=== PATIENT | female | born 1990 | race Caucasian/White ===

== ENCOUNTER 2016-06-03 18:15 | Inpatient (IN) | payer MEDICAID ==
[~2016-06-03] VITALS: Ht 152.4 cm; Wt 55.4 kg
[~2016-06-03 18:15] MED LIST: DCS100C PO; FERR325C PO; HYDR-1231 PO; Ibuprofen PO; PREN1TAB71 PO; [UNRECOGNIZED DRUG - CODE] PO
[2016-06-03] MEDS ORDERED: D5 LR IV SOLUTION 1,000 ML IV ONE (19:08)
[2016-06-03] MEDS ORDERED: DINOPROSTONE 10 MG (CERVIDIL) INSERT ONE (19:09)
[2016-06-03] MEDS: D5 LR IV SOLUTION 1,000 ML IV SCH (19:25)
[2016-06-03 20:00] VITALS: BP 121/57
[2016-06-03] MEDS ORDERED: ZOLPIDEM 5 MG (AMBIEN) TAB PO PRN (20:00)
[2016-06-03] MEDS ORDERED: DINOPROSTONE 10 MG (CERVIDIL) INSERT PV ONE (20:00)
[2016-06-03 20:05] LABS: BASOPHILS % (AUTO) 0 % (0-10); EOSINOPHILS # (AUTO) 0.1 10^3/uL (0.0-0.3); EOSINOPHILS % (AUTO) 1 % (0-10); LYMPHOCYTES % (AUTO) 23 % (12-44); MEAN CORPUSCULAR HEMOGLOBIN 32 PG (25-34); MEAN CORPUSCULAR HGB CONC 34 G/DL (32-36); MEAN CORPUSCULAR VOLUME 93 FL (80-99); MEAN PLATELET VOLUME 11.6 FL (7.4-10.4); MONOCYTES # (AUTO) 1.2 X 10^3 (0.0-1.0); MONOCYTES % (AUTO) 9 % (0-12); NEUTROPHILS # (AUTO) 8.7 X 10^3 (1.8-7.8); NEUTROPHILS % (AUTO) 67 % (42-75); PLATELET COUNT 218 10^3/uL (130-400); RED BLOOD COUNT 3.72 10^6/uL (4.35-5.85); RED CELL DISTRIBUTION WIDTH 14.3 % (10.0-14.5)
[2016-06-03] MEDS ORDERED: CATHETER FLUSH 10 ML SYR IV SCH (22:00)
[2016-06-04] VITALS (23 sets, daily range): BP systolic 98–141; BP diastolic 52–97
[2016-06-04] MEDS: D5 LR IV SOLUTION 1,000 ML IV SCH (03:25)
[2016-06-04] MEDS ORDERED: FLU TRIvalent (5 YOA+) 2016-17 (AFLURIA) 0.5 ML IM ONE ×2 (07:00→17:18)
[2016-06-04] MEDS ORDERED: OXYTOCIN/NORMAL SALINE 500 ML IV ONE (07:25)
[2016-06-04] MEDS ORDERED: OXYTOCIN/NORMAL SALINE 500 ML IV SCH ×2 (07:32→10:36)
--- NOTE | 2016-06-04 07:32 | History & Physical-OB ---
OB - Chief Complaint & HPI Date Date of Admission: Date of Admission: Jun 03, 2016 at 18:15 Chief Complaint/History OB-Reason for Admission/Chief: Induction of Labor Hx : 2 Hx Para: 1 Expected Date of Delivery: Jun 10, 2016 Gestational Age in Weeks: 39 Gestational Age in Days: 1 Indication for induction: maternal distance Admission Nurse Assessment Rev: Yes History of Labs GBS negative Allergies and Home Medications Allergies Coded Allergies: No Known Drug Allergies (Unverified , 11/28/13) Home Medications Vit/Fe Fumarate/Fa 1 Each Tablet 1 EACH PO DAILY (Reported) OB - History Hx of Present Care: Yes Ultrasounds: Normal mid trimester US Obstetrical Complications: None Medical Complications: None Obstetrical History Hx Termination: No Hx Multiple Gestation: No Hx Stillbirth: No Hx Complication: No Hx Induced Hypertens: No Hx Maternal Gestational Diabet: No Delivery History Hx Dystocia: No Hx Large For Gestational Age I: No Hx Small for Gestational Age I: No Hx Section: No Hx Vaginal Delivery Post C-Sec: No Hx Blood Disorders: No Adverse Rxn to Tranfusion: No Patient Past Medical History No chronic medical problems Social History/Family History HIV/AIDS: No Recent Infectious Disease Expo: No Sexually Transmitted Disease: No Alcohol Use: Denies Use Recreational Drug Use: No Immunizations Hepatitis A: Yes Hepatitis B: Yes Tetanus Booster (TDap): Unknown OB - Admission Exam Physical Exam Vitals: Vital Signs 06/04/16 07:00 Temp 98.5 Pulse 72 Resp 18 B/P 106/55 O2 Delivery Room Air HEENT: Moist Membranes Heart: Rhythm Normal Lungs: Clear Abdomen: Gravid Extremities: Normal Cervical Dilatation: 2cm Effacement: 50% Station: -3 Membranes: Intact Heart Rate: 140's Accelerations: Accelerations Present Decelerations: No Decelerations Penitentiary Variability: Average (6-25) Contractions on Admission: >10 Minutes Apart Intensity: Mild Taylor Scoring Tool (Modified) Dilation (cm): 1-2cm (1) Effacement (%): 31-51% (1) Descent/Station: -3 (0) Cervix Consistency: Medium(1) Cervix Position: Middle/Mid-Position (1) Add 1 point for: Each previous vaginal delivery (1) Taylor Score: 5 Labs Laboratory Tests Test 06/03/16 19:25 Range/Units Basophils # (Auto) 0.0 0.0-0.1 10^3/uL Basophils (%) (Auto) 0 0-10 % Eosinophils # (Auto) 0.1 0.0-0.3 10^3/uL Eosinophils (%) (Auto) 1 0-10 % Hematocrit 35 35-52 % Hemoglobin 11.9 11.5-16.0 G/DL Lymphocytes # (Auto) 3.0 1.0-4.0 X 10^3 Lymphocytes (%) (Auto) 23 12-44 % Mean Corpuscular Hemoglobin 32 25-34 PG Mean Corpuscular Hemoglobin Concent 34 32-36 G/DL Mean Corpuscular Volume 93 80-99 FL Mean Platelet Volume 11.6 H 7.4-10.4 FL Monocytes # (Auto) 1.2 H 0.0-1.0 X 10^3 Monocytes (%) (Auto) 9 0-12 % Neutrophils # (Auto) 8.7 H 1.8-7.8 X 10^3 Neutrophils (%) (Auto) 67 42-75 % Platelet Count 218 130-400 10^3/uL Red Blood Count 3.72 L 4.35-5.85 10^6/uL Red Cell Distribution Width 14.3 10.0-14.5 % White Blood Count 13.0 H 4.3-11.0 10^3/uL OB - Assessment/Plan/Diagnosis Assessment Assessment: induction of labor Plan Plan: Induction Induction Method: other (cervidil then AROM in the am) Other Plan desires epidural MELISA MENDOZA MD Jun 04, 2016 07:32
[2016-06-04] MEDS ORDERED: SUFENTA 0.6MCG/ML BUPIVA 0.125 0 ML ONE (09:05)
[2016-06-04] MEDS ORDERED: MEPIVACAINE (CARBOCAINE) 2% 50 ML VIAL ONE (09:52)
--- NOTE | 2016-06-04 10:36 | OB Labor & Delivery Record ---
L&D History Date of Service Date of Service: Jun 04, 2016 History Expected Date of Delivery: Jun 10, 2016 Gestational Age in Weeks: 39 Hx : 2 Hx Para: 1 Complications Events: Routine care Operative Indications (Cesarea: N/A-Vaginal Delivery Intrapartal Events: None L&D Stage1 Stage One Onset of Labor - Date: Jun 04, 2016 Onset of Labor - Time: 07:25 Monitors and Tracing Monitor Mode: Internal Heart Rate: 135 Monitor Accelerations: Uniform Monitor Decelerations: None Station: -3 Application Development Specialist Variability: Average (6-10) Short Term Variability: Present Presentation: Vertex Vital Signs VS - Last 72 Hours, by Label 06/03/16 06/04/16 06/04/16 20:00 07:00 07:30 Temp 98.2 98.5 97.5 Pulse 83 72 71 Resp 18 18 18 B/P 121/57 106/55 110/64 O2 Delivery Room Air Room Air Room Air Signs of Distress by FHT Signs of Distress no Rupture of Membranes Spontaneous Ruture of Membrane: No Amniotic Membrane Rupture Time: 07 Amniotic Membrane Fluid Desc.: Clear L&D Stage2 Stage Two Stage II Date: Jun 04, 2016 Stage II Time: 10:04 Monitors and Tracing Monitor Mode: Internal Heart Rate: 135 Monitor Accelerations: Uniform Monitor Decelerations: None Application Development Specialist Variability: Average (6-10) Short Term Variability: Present Position: Left Occiput Anterior Presentation: Vertex Signs of Distress by FHT Signs of Distress no Cord Descript/Complications Cord Vessel Description: 3 Vessels Delivery Type Delivery Method: Spontaneous Vaginal Anterior Shoulder: Left Episiotomy/Perineal Laceration Laceraction(s)/Extensions: Yes Episiotomy Description: Midline Sutures Used: Vicryl Condition of Infant Delivery 1 minute Comment: 8 5 minute Comment: 9 Condition of Condition of : Living Exam: No Observed Abnormalities Resuscitation Resuscitation: N/A - Spontaneous Resp L&D Stage3 Stage Three Stage III Date: Jun 04, 2016 Stage III Time: 10:06 Pictocin Pitocin Administration mu/min: 2 Pitocin ml/hr: 2 Pitocin Administration Comment: pitocin started per protocol. Placenta Delivery Placenta Delivery: Spontaneous Delivery Summary Summary 250 Condition of Delivery Examined: Cervix Examined Post Hemorrhage: No MELISA MENDOZA MD Jun 04, 2016 10:36
[2016-06-04] MEDS ORDERED: BENZOCAINE/MENTHOL (DERMOPLAST) 56 ML CAN TP PRN (10:45)
[2016-06-04] MEDS ORDERED: WITCH HAZEL(TUCKS) 40 EA JAR TOP PRN (10:45)
[2016-06-04] MEDS ORDERED: HYDROcodone/APAP 5 MG/325 MG (LORTAB) TAB PO PRN (10:45)
[2016-06-04] MEDS ORDERED: TETANUS,DIPTH,PERTUSS P/F (BOOSTRIX) 0.5 ML VIAL IM ONE ×2 (10:45→17:20)
[2016-06-04] MEDS ORDERED: MEASLES,MUMPS,RUBELLA 1 EA INJ SQ ONE (10:45)
[2016-06-04] MEDS ORDERED: CATHETER FLUSH 10 ML SYR IV SCH (14:00)
[2016-06-04] MEDS: IBUPROFEN 600 MG (MOTRIN) TAB PO SCH ×2 (14:26→22:45)
[2016-06-04] MEDS ORDERED: MEPIVACAINE (CARBOCAINE) 2% 20 ML VIAL INJ ONE (14:30)
[2016-06-05 01:00] VITALS: BP 117/67
[2016-06-05 04:45] VITALS: BP 106/64
[2016-06-05] MEDS: IBUPROFEN 600 MG (MOTRIN) TAB PO SCH ×2 (04:48→12:00)
[2016-06-05 06:31] LABS: BASOPHILS % (AUTO) 0 % (0-10); EOSINOPHILS # (AUTO) 0.2 10^3/uL (0.0-0.3); EOSINOPHILS % (AUTO) 1 % (0-10); LYMPHOCYTES # (AUTO) 2.7 X 10^3 (1.0-4.0); LYMPHOCYTES % (AUTO) 21 % (12-44); MEAN CORPUSCULAR HEMOGLOBIN 32 PG (25-34); MEAN CORPUSCULAR HGB CONC 34 G/DL (32-36); MEAN CORPUSCULAR VOLUME 95 FL (80-99); MEAN PLATELET VOLUME 11.4 FL (7.4-10.4); MONOCYTES # (AUTO) 1.3 X 10^3 (0.0-1.0); MONOCYTES % (AUTO) 10 % (0-12); NEUTROPHILS # (AUTO) 8.8 X 10^3 (1.8-7.8); NEUTROPHILS % (AUTO) 68 % (42-75); PLATELET COUNT 202 10^3/uL (130-400); RED BLOOD COUNT 3.33 10^6/uL (4.35-5.85); RED CELL DISTRIBUTION WIDTH 14.7 % (10.0-14.5)
[2016-06-05] MEDS ORDERED: IBUP-1773 PO (07:42)
--- NOTE | 2016-06-05 07:42 | Discharge Summary ---
Diagnosis/Chief Complaint Date of Admission Jun 03, 2016 at 18:15 Date of Discharge June 05, 2016 Discharge Date: Jun 05, 2016 Admission Diagnosis Admission Diagnosis 1. Intrauterine at term 39 weeks Discharge Diagnosis 1. Intrauterine at term 39 weeks Reason Hospital Visit 25-year-old 2 now term 2 female who initially presents to labor and delivery during the evening of June 03, 2016 for induction of labor at 39 weeks. The induction was done due to living in [place] and her concerns were getting here in a timely fashion. Patient had dilation to 2 cm upon presentation. Her EDC was listed June 10, 2016. Her care was essentially unremarkable. Discharge Summary-OBS Procedures 1. Spontaneous vaginal delivery 2. Repair of midline episiotomy Discharge Physical Examination Allergies: Coded Allergies: No Known Drug Allergies (Unverified , 11/28/13) Vitals & I&Os Vital Signs Date Time Temp Pulse Resp B/P Pulse Ox O2 Delivery O2 Flow Rate FiO2 06/05/16 04:45 98.4 77 18 106/64 98 Room Air General Appearance: No Acute Distress HEENT: Mucous Memb Moist/[place] Respiratory: Clear to Auscultation Cardiovascular: Regular Rate Abdominal: Normal Bowel Sounds, Soft Skin: No Rashes Hospital Course Patient was admitted during the evening of June 03, 2016 for induction of labor. Patient underwent Cervidil cervical ripening and tolerated procedure well. She developed a contraction pattern during the business trainer of June 04, 2016. She underwent amniotomy at 07 20 with clear fluid noted. Patient required only a small dose of Pitocin to augment her contraction. Patient did not receive epidural due to time constraint of dilating too fast. Once the completion she was allowed to push and delivered at 1004 a term appropriate for gestational age male. Infant received Apgars of 8 at 1 minute and 9 at 5 minutes. Following delivery patient underwent routine care orders. She was noted to have no complications during the remainder of her hospital stay. She tolerated regular diet. She was ambulatory and without any complaints of shortness of breath or leg pain. Her hemoglobin on the morning of dismissal was noted to be 10.8. She had all questions answered was felt ready for dismissal during the afternoon of June 05, 2016. Pending Labs Laboratory Tests 06/05/16 06:04: Basophils # (Auto) 0.0, Basophils (%) (Auto) 0, Eosinophils # (Auto) 0.2, Eosinophils (%) (Auto) 1, Hematocrit 32, Hemoglobin 10.8, Lymphocytes # (Auto) 2.7, Lymphocytes (%) (Auto) 21, Mean Corpuscular Hemoglobin 32, Mean Corpuscular Hemoglobin Concent 34, Mean Corpuscular Volume 95, Mean Platelet Volume 11.4, Monocytes # (Auto) 1.3, Monocytes (%) (Auto) 10, Neutrophils # ( Auto) 8.8, Neutrophils (%) (Auto) 68, Platelet Count 202, Red Blood Count 3.33, Red Cell Distribution Width 14.7, White Blood Count 13.0 Discharge Instructions to patient/family Please see electonic discharge instructions given to patient. Discharge Medications Reviewed and agree with Discharge Medication list on patient's Discharge Instruction sheet Clinical Quality Measures DVT/VTE Risk/Contraindication: Risk Factor Score Per Nursin RFS Level Per Nursing on Admit: 4+=Very High MELISA MENDOZA MD Jun 05, 2016 07:42
--- NOTE | 2016-06-05 07:44 | Discharge Inst-Women's Service ---
Discharge Inst-Women's Serv Depart Medication/Instructions New, Converted or Re-Newed RX: Transmitted to Pharmacy Consults/Follow Up Additional Follow Up: Yes (with Dr Mendoza in 6 weeks.) Activity Driving Instructions: You May Drive Nothing Inside Vagina: No [place] (for 6 weeks) Diet Discharge Diet: Regular Diet Return to The Hospital For: As below Symptoms to Report to : Bleeding Excessive, Pain Increased, Fever Over 101 Degrees F, Vaginal Discharge Foul For Any Problems or Questions: Contact Your Physician MELISA MENDOZA MD Jun 05, 2016 07:44
[2016-06-05 09:00] VITALS: BP 107/68
== END 2016-06-05 14:00 | disposition home or self-care (01) | DRG 775 ==
LOC: LDRP 18:15
PROVIDERS: ADMIT Family Medicine; ATTEND Family Medicine
PROC: 10E0XZZ Delivery of Products of Conception, External Approach (ICD-10-PCS; principal; 2016-06-04)
PROC: 0W8NXZZ Division of Female Perineum, External Approach (ICD-10-PCS; 2016-06-04)
DX: O80 Encounter for full-term uncomplicated delivery (principal); Z3A.39 39 weeks gestation of pregnancy; Z37.0 Single live birth; Z23 Encounter for immunization
CPT/HCPCS: 36415; 85025; 86850; 86900; 86901; 90715

== ENCOUNTER → 2017-05-21 | Outpatient (CLI) | payer MEDICAID ==
[~2017-05-21] MED LIST changes: +IBUP-1773 PO
--- NOTE | 2017-05-21 08:40 | Diagnostic Imaging Report ---
INDICATION: Epigastric pain. The liver is unremarkable. No discrete liver mass is identified. The gallbladder is without stones or sludge. No wall thickening or pericholecystic fluid is seen. There is no biliary ductal dilatation. The pancreas is unremarkable. The right kidney is unremarkable. There is no ascites. IMPRESSION: Unremarkable gallbladder ultrasound. Dictated by: Dictated on workstation # [id number]
== END ==
LOC: RAD 07:18
PROVIDERS: ATTEND Family Medicine
DX: R10.13 Epigastric pain (principal)
CPT/HCPCS: 76705

== ENCOUNTER → 2019-04-10 | Outpatient (CLI) | payer MEDICAID ==
--- NOTE | 2019-04-10 08:48 | Diagnostic Imaging Report ---
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 PA and lateral views of the chest obtained with comparison made to study of 02/21/2015. FINDINGS: Heart size and pulmonary vascularity are within normal limits, and the lungs are clear, bilaterally. IMPRESSION: Unremarkable chest. Dictated by: Dictated on workstation # [id number]
== END ==
LOC: RAD FS 08:27
PROVIDERS: ATTEND Family Medicine
DX: R76.11 Nonspecific reaction to tuberculin skin test without active tuberculosis (principal)
CPT/HCPCS: 71046

== ENCOUNTER → 2021-06-24 | Outpatient (CLI) | payer MEDICAID ==
--- NOTE | 2021-06-24 13:45 | Diagnostic Imaging Report ---
PROCEDURE: MR imaging of the brain without contrast. TECHNIQUE: Multiplanar, multisequence MR imaging of the brain was performed without contrast. INDICATION: Headaches. COMPARISON: none FINDINGS: No acute ischemia, mass, or hemorrhage. Focal T2 hyperintense signal is seen in the subcortical white matter in the bilateral frontal lobes. The ventricles, cortical sulci, and basilar cisterns are symmetric and unremarkable. The sellar and suprasellar regions have a normal appearance. The brainstem and posterior fossa are unremarkable. Mild mucosal thickening is seen in the sphenoid sinuses. The mastoid air cells demonstrate normal signal characteristics. The globes and orbits are symmetric and unremarkable. The scalp and calvarium have a normal appearance. IMPRESSION: 1. No acute ischemia, mass, or hemorrhage. 2. Focal T2 hyperintense signal in the subcortical white matter within the bilateral frontal lobes. Findings are favored to represent sequelae of migraine. Demyelination is felt to be less likely. Chronic microvascular disease would also be unlikely given the patient's age. 3. Mild mucosal thickening in the sphenoid sinuses. Dictated by: Dictated on workstation # [id number]
== END ==
LOC: RAD 13:15
PROVIDERS: ATTEND Nurse Practitioner Family
DX: G43.909 Migraine, unspecified, not intractable, without status migrainosus (principal); S09.90XS Unspecified injury of head, sequela
CPT/HCPCS: 70551

== ENCOUNTER → 2021-10-30 | Outpatient (CLI) | payer MEDICAID ==
--- NOTE | 2021-10-30 11:43 | Diagnostic Imaging Report ---
INDICATION: Generalized abdominal pain. Time of Exam: 10:03 AM Single view of the abdomen demonstrates bowel gas pattern to be nonobstructed. No radiopaque urinary tract calculi are seen. There is no free air. IMPRESSION: No acute feature detected. Dictated by: Dictated on workstation # [id number]
== END ==
LOC: RAD FS 09:50
PROVIDERS: ATTEND Nurse Practitioner Family
DX: K44.9 Diaphragmatic hernia without obstruction or gangrene (principal); R15.2 Fecal urgency; Z87.19 Personal history of other diseases of the digestive system
CPT/HCPCS: 74018

== ENCOUNTER → 2021-11-21 | Outpatient (CLI) | payer MEDICAID ==
[~2021-11-21] MED LIST changes: +CATHETER FLUSH 10 ML SYR IVP PRN
--- NOTE | 2021-11-21 11:20 | Diagnostic Imaging Report ---
INDICATION: Right upper quadrant pain. TECHNIQUE: Patient received 5.3 mCi technetium-99m Choletec intravenously. Sequential imaging over the abdomen performed. After confirmation of activity within the gallbladder, bile ducts, and proximal bowel, gallbladder stimulation was performed with oral ingestion of Ensure Plus with additional one hour of imaging and quantification of gallbladder ejection. FINDINGS: There is prompt homogenous distribution of the radiopharmacy throughout the liver parenchyma. Activity began to accumulate within the gallbladder within 15 minutes' time. With gallbladder stimulation, there was vigorous gallbladder contraction. Ejection fraction estimated at 83%, well within normal limits. IMPRESSION: 1. This is a normal nuclear medicine hepatobiliary scanning and gallbladder ejection fraction study. 2. Fatty meal ingestion results in good gallbladder contractility and did not reproduce any complaint of pain. Dictated by: Dictated on workstation # [id number]
== END ==
LOC: CARD 08:00
PROVIDERS: ATTEND Surgery
DX: R10.11 Right upper quadrant pain (principal)
CPT/HCPCS: 78227; A9537

== ENCOUNTER → 2021-12-04 | Outpatient (CLI) | payer MEDICAID ==
[~2021-12-04] MED LIST changes: -CATHETER FLUSH 10 ML SYR IVP PRN
--- NOTE | 2021-12-04 17:54 | Diagnostic Imaging Report ---
PROCEDURE: CT sinuses without contrast TECHNIQUE: Multiple contiguous axial images were obtained through the sinuses without the use of intravenous contrast. Coronal and sagittal reformations were then performed. Auto Exposure Controls were utilized during the CT exam to meet ALARA standards for radiation dose reduction. INDICATION: Chronic sinusitis. COMPARISON: MRI brain of 06/24/2021. FINDINGS: NASAL CAVITY: There is mild rightward bowing of the anterior aspect of the osseous nasal septum without significant deviation. No polyp within the nasal cavity. Evelyn bullosa of the right superior turbinate does not result in obstruction of the superior meatus. PARANASAL SINUSES: The bilateral maxillary, ethmoid and frontal sinuses are clear. The right frontal sinus is underpneumatized. Trace mucosal thickening measures no more than 3 mm in the sphenoid sinuses. No air-fluid levels of the paranasal sinuses. SINUS DRAINAGE PATHWAYS: The bilateral infundibula of the ostiomeatal units are patent. Frontal recesses are patent. The sphenoethmoidal recesses are obstructed due to mucosal thickening. OTHER: No space-occupying mass or hydrocephalus within the visualized aspects of the brain. Orbits are normal in appearance. IMPRESSION: 1. Trace mucosal thickening in the bilateral sphenoid sinuses does result in obstruction of the bilateral sphenoethmoidal recesses. 2. Otherwise, paranasal sinuses and sinus drainage pathways are clear. Dictated by: Dictated on workstation # [id number]
== END ==
LOC: RAD FS 15:13
PROVIDERS: ATTEND Otolaryngology Otolaryngology/Facial Plastic Surgery
DX: J32.9 Chronic sinusitis, unspecified (principal)
CPT/HCPCS: 70486

== ENCOUNTER 2022-03-10 05:31 | Outpatient (CLI) | payer MEDICAID ==
[~2022-03-10] VITALS: Ht 152.4 cm; Wt 44.5 kg
[2022-03-10] MEDS ORDERED: FLUT9.9S NS (10:22)
[2022-03-10] MEDS ORDERED: NORG1TAB14 PO (10:22)
== END 2022-03-10 16:26 | disposition home or self-care (01) ==
LOC: PREOP 05:31
PROVIDERS: ATTEND Surgery
DX: Z01.818 Encounter for other preprocedural examination (principal)

== ENCOUNTER 2022-03-18 06:42 | Day surgery (SDC) | payer MEDICAID ==
[2022-03-18] VITALS (11 sets, daily range): BP systolic 99–114; BP diastolic 60–76
[~2022-03-18] VITALS: Ht 152.4 cm; Wt 44.5 kg
[~2022-03-18 06:42] MED LIST changes: +FLUT9.9S NS; +NORG1TAB14 PO
[2022-03-18] MEDS ORDERED: ceFAZolin INJECTION 2,000 MG in NS (IVPB) 50 ML IV ONE (06:45)
[2022-03-18] MEDS ORDERED: BUP/EPI 0.25% 1:200,000 (MARCAINE) 30 ML VIAL ONE (07:10)
[2022-03-18] MEDS: LACTATED RINGERS 1,000 ML IV PRN ×2 (07:12→08:57)
[2022-03-18] MEDS ORDERED: BUP/EPI 0.25% 1:200,000 (MARCAINE) 30 ML VIAL INJ ONE (07:15)
[2022-03-18] MEDS ORDERED: GLYCOPYRROLATE 0.2 MG/ML (ROBINUL) 2 ML VIAL ONE (07:31)
[2022-03-18] MEDS ORDERED: ONDANSETRON 4 MG/2 ML (SDV) Z0FRAN ONE (07:31)
[2022-03-18] MEDS ORDERED: proPOfol 200 MG/20 ML (DIPRIVAN) VIAL IV ONE (07:31)
[2022-03-18] MEDS ORDERED: fentaNYL INJ 100 MCG/2 ML AMP ONE (07:31)
[2022-03-18] MEDS ORDERED: MIDAZOLAM 2 MG/2 ML (VERSED) VIAL ONE (07:31)
[2022-03-18] MEDS ORDERED: ROCURONIUM 10 MG/ML 5 ML SYRINGE IV ONE (07:31)
[2022-03-18] MEDS ORDERED: LIDOCAINE PF 2% 5 ML (XYLOCAINE) VIAL ONE (07:31)
--- NOTE | 2022-03-18 08:17 | Progress Note-Pre Operative ---
Pre-Operative Progress Note Date of Available H&P: Mar 03, 2022 Date H&P Reviewed: Mar 18, 2022 Time H&P Reviewed: 08:09 History & Physical: H&P Reviewed, Patient Examed, No changes noted Pre-Operative Diagnosis: Biliary Dyskinesia, Chronic Gastritis STEPHANIE MARTIN DO Mar 18, 2022 08:17
[2022-03-18] MEDS ORDERED: IOHEXOL 300 MG/ML 30 ML (OMNIPAQUE 300) VIAL INJ ONE (09:07)
--- NOTE | 2022-03-18 09:35 | Progress Note-Post Operative ---
Post-Operative Progess Note Surgeon (s)/Glass Novelty Maker (s) Surgeon STEPHANIE MARTIN DO Glass Novelty Maker: ANGELIKA Schneider Pre-Operative Diagnosis Biliary Dyskinesia, Chronic Gastritis Post-Operative Diagnosis Biliary Dyskinesia Procedure & Operative Findings Date of Procedure 03/18/22 Procedure Performed/Findings PROCEDURE: Laparoscopic cholecystectomy with intraoperative cholangiogram. COMPLICATIONS: None. PROCEDURE: The patient was taken to the operating suite and was prepped and draped in sterile fashion. A surgical pause was performed. Just superior to the umbilicus, a 12 mm incision was made. Dissection was taken down to the fascia, which was then scored and grasped with a Hunter and the abdomen was then entered. An 0 Vicryl suture was placed in a [id number]-[id number] fashion and a Zhao trocar was placed and secured. Pneumoperitoneum was achieved. A 5mm trochar place in the subxyphoid and 2 in the right lower quadrant in the normal fashion; with local lidocaine, stab incision with #11 blade and the versa-step system. The gallbladder was then grasped and elevated. The cystic duct, and cystic artery were then dissected out. Clip was placed on the distal portion of the cystic duct which was then partially transected. An arrow catheter was inserted into the duct. The cholangiogram was then performed. No filling defects and contrast made its way into the duodenum. Catheter removed. Clips were placed on proximal portion of the cystic duct and then the duct was then transected. Clips were placed along the proximal and distal portion of the cystic artery which was then transected. Hook cautery was used to dissect the gallbladder from the gallbladder fossa achieving hemostasis. The gallbladder was placed in an Endobag and removed through the 12 mm trocar site. The abdomen was then reinspected. Copious amounts of irrigation were used to irrigate the abdomen and there were no signs of active bleeding. Hemostasis had been achieved. The 12 mm fascial defect was then closed with 0 Vicryl suture that had been placed in a [id number] fashion. The abdomen was then desufflated, the trocars were removed. The abdomen was then washed and dried. The skin was then closed using 4-0 Monocryl in a subcuticular fashion. The abdomen was washed and dried and Skin Affix was place over incisions. Patient tolerated the procedure well without any complications and was taken to the recovery room in stable condition. Anesthesia Type GET Estimated Blood Loss Estimated blood loss (mL): scant Specimens/Packing Specimens Removed GB and contents STEPHANIE MARTIN DO Mar 18, 2022 09:35
[2022-03-18] MEDS ORDERED: SEVOFLURANE (ULTANE) 15 ML INHAL SOLN ONE (09:38)
--- NOTE | 2022-03-18 09:38 | Progress Note-Post Operative ---
Post-Operative Progess Note Surgeon (s)/Winder Helper (s) Surgeon STEPHANIE MARTIN DO Winder Helper: none Pre-Operative Diagnosis Chronic Gastritis Post-Operative Diagnosis Gastritis Hiatal hernia Procedure & Operative Findings Date of Procedure 03/18/22 Procedure Performed/Findings EGD with bx PROCEDURE NOTE: After informed consent was obtained, the patient was brought to the endoscopy suite, placed in bed in left lateral decubitus position. She was administered IV sedation by the SILVERWARE BUFFER who then monitored vitals the entire time, heart rate, blood pressure and pulse ox and the scope was inserted down the mouth through the esophagus into the stomach. Pushed into the stomach and pushed past the antrum into the duodenum. Duodenum looked good. Pulled back and noted the antrum had mild gastritis, did a biopsy of the antrum. Then retroflexed the scope, saw a large hiatal hernia, took a picture of this. Then pulled the scope into the GE junction and then did a biopsy of the GE junction. Pushed the scope back into the stomach, suctioned all the air out of the stomach. At this point pulled the scope up the esophagus and out the mouth. The patient tolerated the procedure, and she recovered in endoscopy suite. Anesthesia Type GET Estimated Blood Loss Estimated blood loss (mL): scant Specimens/Packing Specimens Removed antrum GE jxn STEPHANIE MARTIN DO Mar 18, 2022 09:38
[2022-03-18] MEDS ORDERED: NEOSTIGMINE (BLOXIVERZ ) 1 MG/1ML 10 ML VIAL ONE (09:39)
--- NOTE | 2022-03-18 09:39 | Endoscopy Discharge Instruct ---
Endo Procedure/Findings Findings 1.: Gastritis 2.: Hiatal Hernia Discharge Instructions - Activity: You might feel a little sleepy until tomorrow. This is due to the medicine you received to relax you. Until tomorrow, you should: NOT drive a car, operate machinery or power tools. NOT drink any alcoholic beverages. NOT make any important decisions or sign importortant papers. Do not return to work until tomorrow, unless otherwise instructed. Resume previous activities tomorrow. Diet: Start by taking liquids. If you tolerate liquids, advance to solid food. 1.: EGD in 3 years Notify Physician - If you experience excessive bleeding, unusual abdominal pain, fever, or chest pain, contact your doctor immediately. STEPHANIE MARTIN DO Mar 18, 2022 09:39
[2022-03-18] MEDS ORDERED: ACHD5005 PO (09:40)
--- NOTE | 2022-03-18 09:40 | Discharge Inst-Surgical ---
Discharge Inst-Surgical Depart Medication/Instructions New, Converted or Re-Newed RX: Transmitted to Pharmacy Patient Instructions Follow up Appt: Make appointment for 1 week. [phone] Instructions: No lifting greater than 20 pounds. No strenuous activity. May shower in 24 hours, no tub bath or soaking. Use incentive spirometer at home as directed. No Smoking Skin/Wound Care: May remove bandages in am. You need to leave the Dermabond on incision it will fall off on it's own. Symptoms to Report: Appetite Changes, Extremity Discoloration, Numbness/Tingling, Swelling Increased, Bleeding Excessive, Eyesight Changes, Pain Increased, Urine Color Change, Constipation(Persistent), Fever over 101 degree F, Pain/Pressure in chest, Urinating Difficulty, Cough Up/Vomit Blood, Heart Beat Irreg/Pounding, Pain/Pressure in jaw, Cramps in feet or legs, Lightheadedness, Pain/Pressure in shoulder, Diarrhea(Persistent), Memory Changes Suddenly, Questions/Concerns, Weight gain consecutive days, Dizziness/Fainting, Nausea/Vomiting, Shortness of Breath, Weight gain over 2 pounds If questions or concerns contact your physician Or seek help at emergency department. Activity Activity as Tolerated: Yes Activity Instructions: Avoid Stress to Incision Driving Instructions: No Driving/Refer to Diet Discharge Diet: Avoid Fatty Foods, Low Fat/Low Cholesterol Diet After 24 Hours: Clear Liquid if Nauseous If Any Problems/Questions/Issu: Contact Your Physician, Go to Emergency Room Skin/Wound Care Infection Signs and Symptoms: Increased Redness, Foul Odor of Wound, Increased Drainage, Skin Itchy or Has a Rash, Increased Swelling, Temperature Above 101 F Wound Care Comment: heating pad to shoulder if needed for pain tonight Bathing Instructions: Shower Stitches/Rich/Dermabond Dis: Dermabond Ice Pack: Ice On and Off Site STEPHANIE MARTIN DO Mar 18, 2022 09:40
[2022-03-18] MEDS ORDERED: ONDANSETRON 4 MG/2 ML (SDV) Z0FRAN IVP PRN (09:45)
[2022-03-18] MEDS ORDERED: morphine INJ 10 MG/ML 1ML (SYR OR VIAL) IVP ONE (09:45)
[2022-03-18] MEDS ORDERED: HYDROmorphone 2 MG/ML VIAL (DILAUDID) IV ONE (09:45)
[2022-03-18] MEDS ORDERED: morphine INJ 10 MG/ML 1ML (SYR OR VIAL) ONE (09:46)
--- NOTE | 2022-03-18 09:54 | Anesthesia-General Post-Op ---
General Patient Condition Mental Status/LOC: Same as Preop Cardiovascular: Satisfactory Nausea/Vomiting: Absent Respiratory: Satisfactory Pain: Controlled Complications: Absent Post Op Complications Complications None Follow Up Care/Instructions Patient Instructions None needed. Anesthesia/Patient Condition Patient Condition Patient is doing well in PACU. She does complain of some abdominal pain which is to be expected and is currently better after morphine. She has stable vital signs, no apparent adverse anesthesia problems. No complications reported per nursing. JACKIE CHILDRESS DO Mar 18, 2022 09:54
--- NOTE | 2022-03-18 18:51 | Diagnostic Imaging Report ---
INDICATION: Cholecystectomy Operative cholangiogram performed in a routine fashion with injection via the cystic duct stump in surgery. The distal common bile duct is visualized and appears patent and with contrast flow into the duodenum. There is extravasation of contrast at the injection site. 48 images were obtained, 9.3 seconds of fluoroscopy time was used. IMPRESSION: Intraoperative cholangiogram demonstrates no biliary obstruction. Some extravasation at the injection site was noted. Dictated by: Dictated on workstation # [id number]
== END 2022-03-18 12:20 | disposition home or self-care (01) ==
LOC: SDC 06:42
PROVIDERS: ATTEND Surgery
DX: K29.50 Unspecified chronic gastritis without bleeding (principal); K44.9 Diaphragmatic hernia without obstruction or gangrene; K82.8 Other specified diseases of gallbladder; K81.1 Chronic cholecystitis; Z28.310 Unvaccinated for COVID-19; K20.90 Esophagitis, unspecified without bleeding
CPT/HCPCS: 76000; 84703; 87081

== ENCOUNTER 2022-03-20 12:10 | Emergency (ER) | payer MEDICAID ==
[~2022-03-20] VITALS: Ht 152.4 cm; Wt 44.4 kg
[~2022-03-20 12:10] MED LIST changes: +ACHD5005 PO
--- NOTE | 2022-03-20 12:18 | ED GI ---
General Chief Complaint: Abdominal/GI Problems Stated Complaint: ABD PAIN History of Present Illness Date Seen by Provider: Mar 20, 2022 Time Seen by Provider: 12:18 Initial Comments 31-year-old female who is postop day 3 from a cholecystectomy at [facility], is brought in by EMS with complaints of epigastric pain and dysuria which has been worsening associated with nausea. Patient took 1 dose of hydrocodone that was given to her after surgery. Patient has not been eating much and is also not drinking much. Denies fever, cough, shortness of breath, diarrhea. Allergies and Home Medications Allergies Coded Allergies: No Known Drug Allergies (Unverified , 03/18/22) Patient Home Medication List Home Medication List Reviewed: Yes Fluticasone Propionate (Flonase Allergy Relief) 50 Mcg/Actuation [place].susp, 2 SPRAY NS DAILY, (Reported) Entered as Reported by: BOB LYONS on 03/10/22 1022 Hydrocodone Bit/Acetaminophen (HYDROcodone/APAP 5 MG/325 MG TAB) 1 Tab Tab, 1 TAB PO Q6H PRN for PAIN-MODERATE (5-7) Prescribed by: STEPHANIE MARTIN on 03/18/22 0941 Norgestimate-Ethinyl Estradiol (Sprintec 28 Day Tablet) 0.25 Mg-35 Mcg Tablet, 1 EACH PO UD, (Reported) Entered as Reported by: BOB LYONS on 03/10/22 1022 Review of Systems Review of Systems Constitutional: no symptoms reported EENTM: No Symptoms Reported Respiratory: No Symptoms Reported Cardiovascular: No Symptoms Reported Gastrointestinal: Abdominal Pain Genitourinary: Burning Musculoskeletal: no symptoms reported Skin: no symptoms reported Psychiatric/Neurological: No Symptoms Reported Endocrine: No Symptoms Reported Hematologic/Lymphatic: No Symptoms Reported Past Ukrglmw-[id number]-Wfhkno Hx Immunizations Up To Date Tetanus Booster (TDap): Unknown PED Vaccines UTD: Yes Seasonal Allergies Seasonal Allergies: Yes Past Medical History Surgeries: Yes (deviated septum repair, bladder sx as child to stretch) Respiratory: No Currently Using CPAP: No Currently Using BIPAP: No Cardiac: No Neurological: Yes Headaches /Migraines Reproductive Disorders: No Female Reproductive Disorders: Denies Sexually Transmitted Disease: No HIV/AIDS: No Genitourinary: No Gastrointestinal: Yes Hiatal Hernia Musculoskeletal: Yes Arthritis Endocrine: No HEENT: Yes (sinus sx) Loss of Vision: Denies Hearing Impairment: Denies Cancer: No Psychosocial: Yes Anxiety, Depression Integumentary: No Blood Disorders: No Adverse Reaction/Blood Tranf: No Family Medical History Not obtainable due to adoption 19 MOTHER Physical Exam Vital Signs Vital Signs - First Documented 03/20/22 12:10 Temp 36.3 Pulse 63 Resp 18 B/P (MAP) 113/43 (66) Pulse Ox 99 O2 Delivery Room Air Capillary Refill : Height/Weight/BMI Height: 5'0.00" Weight: 122lbs. 2.0oz. [id number]; 19.15 BMI Method: General Appearance: WD/WN, no apparent distress HEENT: PERRL/EOMI, normal ENT inspection Neck: non-tender, full range of motion Respiratory: chest non-tender, lungs clear, normal breath sounds, no respiratory distress, no accessory muscle use Cardiovascular: regular rate, rhythm Gastrointestinal: normal bowel sounds, soft, no organomegaly, no pulsatile mass, tenderness (epigastric area) Extremities: normal range of motion Back: normal inspection, no CVA tenderness Neurologic/Psychiatric: alert, normal mood/affect, oriented x 3 Skin: normal color Lymphatic: no adenopathy Focused Exam Lactate Level 03/20/22 13:27: Lactic Acid Level 1.18 Lactic Acid Level Laboratory Tests Test 03/20/22 13:27 Lactic Acid Level 1.18 MMOL/L (0.50-2.00) Progress/Results/Core Measures Results/Orders Lab Results Laboratory Tests Test 03/20/22 12:15 03/20/22 13:27 03/20/22 13:55 Range/Units White Blood Count 14.7 H 4.3-11.0 10^3/uL Red Blood Count 4.11 3.80-5.11 10^6/uL Hemoglobin 12.4 11.5-16.0 g/dL Hematocrit 36 35-52 % Mean Corpuscular Volume 88 80-99 fL Mean Corpuscular Hemoglobin 30 25-34 pg Mean Corpuscular Hemoglobin Concent 34 32-36 g/dL Red Cell Distribution Width 12.6 10.0-14.5 % Platelet Count 233 130-400 10^3/uL Mean Platelet Volume 11.4 9.0-12.2 fL Immature Granulocyte % (Auto) 0 % Neutrophils (%) (Auto) 73 42-75 % Lymphocytes (%) (Auto) 19 12-44 % Monocytes (%) (Auto) 7 0-12 % Eosinophils (%) (Auto) 0 0-10 % Basophils (%) (Auto) 0 0-10 % Neutrophils # (Auto) 10.7 H 1.8-7.8 10^3/uL Lymphocytes # (Auto) 2.8 1.0-4.0 10^3/uL Monocytes # (Auto) 1.1 H 0.0-1.0 10^3/uL Eosinophils # (Auto) 0.0 0.0-0.3 10^3/uL Basophils # (Auto) 0.0 0.0-0.1 10^3/uL Immature Granulocyte # (Auto) 0.0 0.0-0.1 10^3/uL Neutrophils % (Manual) 68 % Lymphocytes % (Manual) 21 % Monocytes % (Manual) 7 % Band Neutrophils 4 % Platelet Estimate NORMAL Blood Morphology Comment NORMAL Prothrombin Time 13.2 12.2-14.7 SEC INR Comment 1.0 0.8-1.4 Activated Partial Thromboplast Time < 20 L 24-35 SEC D-Dimer 2.24 H 0.00-0.49 UG/ML Sodium Level 142 135-145 MMOL/L Potassium Level 4.0 3.6-5.0 MMOL/L Chloride Level 102 98-107 MMOL/L Carbon Dioxide Level 23 21-32 MMOL/L Anion Gap 17 H 5-14 MMOL/L Blood Urea Nitrogen 10 7-18 MG/DL Creatinine 0.58 L 0.60-1.30 MG/DL Estimat Glomerular Filtration Rate 122 BUN/Creatinine Ratio 17 Glucose Level 112 H 70-105 MG/DL Calcium Level 9.2 8.5-10.1 MG/DL Corrected Calcium 9.0 8.5-10.1 MG/DL Magnesium Level 1.8 1.6-2.4 MG/DL Total Bilirubin 2.2 H 0.1-1.0 MG/DL Aspartate Amino Transf (AST/SGOT) 28 5-34 U/L Alanine Aminotransferase (ALT/SGPT) 28 0-55 U/L Alkaline Phosphatase 50 40-136 U/L Total Protein 7.1 6.4-8.2 GM/DL Albumin 4.3 3.2-4.5 GM/DL Lactic Acid Level 1.18 0.50-2.00 MMOL/L Urine Color YELLOW Urine Clarity CLOUDY Urine pH 6.0 5-9 Urine Specific Severance 1.010 L 1.016-1.022 Urine Protein NEGATIVE NEGATIVE Urine Glucose (UA) NEGATIVE NEGATIVE Urine Ketones 1+ H NEGATIVE Urine Nitrite NEGATIVE NEGATIVE Urine Bilirubin NEGATIVE NEGATIVE Urine Urobilinogen 0.2 < = 1.0 MG/DL Urine Leukocyte Esterase 1+ H NEGATIVE Urine RBC (Auto) TRACE-I H NEGATIVE Urine RBC RARE /HPF Urine WBC 2-5 /HPF Urine Squamous Epithelial Cells 5-10 /HPF Urine Crystals NONE /LPF Urine Bacteria FEW H /HPF Urine Casts NONE /LPF Urine Mucus NEGATIVE /LPF Urine Culture Indicated YES Urine Opiates Screen POSITIVE H NEGATIVE Urine Oxycodone Screen NEGATIVE NEGATIVE Urine Methadone Screen NEGATIVE NEGATIVE Urine Propoxyphene Screen NEGATIVE NEGATIVE Urine Barbiturates Screen NEGATIVE NEGATIVE Ur Tricyclic Antidepressants Screen NEGATIVE NEGATIVE Urine Phencyclidine Screen NEGATIVE NEGATIVE Urine Amphetamines Screen NEGATIVE NEGATIVE Urine Methamphetamines Screen NEGATIVE NEGATIVE Urine Benzodiazepines Screen NEGATIVE NEGATIVE Urine Cocaine Screen NEGATIVE NEGATIVE Urine Cannabinoids Screen NEGATIVE NEGATIVE My Orders Orders - NISHI SU MD Cbc With Automated Diff (03/20/22 12:26) Comprehensive Metabolic Panel (03/20/22 12:26) Fibrin Degradation Products (03/20/22 12:26) Drug Screen Stat (Urine) (03/20/22 12:26) Lactic Acid Analyzer (03/20/22 12:26) Magnesium (03/20/22 12:26) Protime With Inr (03/20/22 12:26) Partial Thromboplastin Time (03/20/22 12:26) Ua Culture If Indicated (03/20/22 12:26) Metoclopramide Injection (Reglan Injecti (03/20/22 12:28) Famotidine Tablet (Pepcid Tablet) (03/20/22 12:28) Ed Iv/Invasive Line Start (03/20/22 12:28) Ed Iv/Invasive Line Start (03/20/22 12:28) Ns Iv 1000 Ml (Sodium Chloride 0.9%) (03/20/22 12:30) Manual Differential (03/20/22 12:15) Urine Culture (03/20/22 13:55) Ceftriaxone 1 Gm Pre-Mix (Rocephin 1 Gm (03/20/22 14:17) Blood Culture (03/20/22 14:17) Lactic Acid Analyzer (03/20/22 14:17) Ct Sarah Chest/Noang Abd-Pelv W (03/20/22 14:16) Fentanyl Inj (Sublimaze Injection) (03/20/22 14:30) Iohexol Injection (Omnipaque 350 Mg/Ml 1 (03/20/22 14:30) Di Iv Start (Assessment) .IV start (03/20/22 14:24) Received Contrast (Hold Metformin- Contr (03/20/22 14:30) Ns (Ivpb) (Sodium Chloride 0.9% Ivpb Bag (03/20/22 14:30) Medications Given in ED Current Medications Medications Dose Ordered Sig/Ruy Route Start Time Stop Time Status Last Admin Dose Admin Fentanyl Citrate 50 mcg ONCE ONCE IVP 03/20/22 14:30 03/20/22 14:31 DC 03/20/22 15:50 50 MCG Iohexol 100 ml ONCE ONCE IV 03/20/22 14:30 03/20/22 14:31 DC 03/20/22 15:05 75 ML Sodium Chloride 100 ml ONCE ONCE IV 03/20/22 14:30 03/20/22 14:31 DC 03/20/22 15:05 100 ML Vital Signs/I&O 03/20/22 12:10 Temp 36.3 Pulse 63 Resp 18 B/P (MAP) 113/43 (66) Pulse Ox 99 O2 Delivery Room Air Progress Progress Note : Progress Note 1. ABDOMINAL PAIN: ACUTE CYSTITIS WITH HEMATURIA: - CT ABD / PELVIS: - UA is positive for RBCs/leukocyte esterase/bacteria -WBC is elevated at 14.7 -CMP unremarkable -Patient is postop day 3 from a cholecystectomy done at [facility] -Cefpodoxime prescription for 7 days twice a day -Advised adequate hydration -Follow-up with PCP in the next 3 to 7 days , and also keep appointment with surgery clinic for next 2. ACUTE GASTRITIS: - Pepcid 20mg and Maalox TSAT in ER -Advised Pepcid 20 mg to be taken twice a day and Maalox as needed [id number] -Follow-up with PCP within the next 3 to 7 days 3. ELEVATED D-DIMER: - D-dimer: 2.24 - CTA CHEST: negative for PE Diagnostic Imaging Diagonstic Imaging: CT Plain Films/CT/US/NM/MRI: chest, abdomen Comments CT SARAH CHEST/NOANG ABD-PELV W EXAMINATION: CTA chest, abdomen, and pelvis. TECHNIQUE: Thin axial sections through the chest, abdomen and pelvis are obtained following intravenous contrast bolus. Multiplanar MIP images were reconstructed and reviewed. All CT scans use one or more of the following dose optimizing techniques: Automated exposure control, MA and/or KvP adjustment based on patient size and exam type or iterative reconstruction. INDICATION: Abdominal pain, elevated D-dimer, cholecystectomy on Wednesday. FINDINGS: CHEST: There are no pulmonary arterial filling defects. There is no PE. The thoracic aorta is patent, nonaneurysmal, and nonacute. No findings of pneumonia or edema. No effusion or pneumothorax. No lung mass or adenopathy. No chest wall lesion. ABDOMEN AND PELVIS: There is a small amount of pneumoperitoneum as an expected postoperative residua. No formed or walled-off perihepatic fluid collection. No pathological biliary dilatation postop. No opaque stone along the course of the extrahepatic bile duct. The pancreas is nonacute. Kidneys are unobstructed. There is a [id number] volume of pelvic free fluid, which may be a combination of physiologic free fluid in the cul-de-sac as well as some postoperative residual fluid. No findings to suggest hemorrhage. No contrast extravasation. There is some colonic constipation and obstipation with no small bowel dilatation. The uterus and urinary bladder appeared unremarkable. IMPRESSION: CHEST: Negative for PE or other acute chest pathology. ABDOMEN AND PELVIS: Pneumoperitoneum small volume as an expected finding. Pelvic free fluid, likely a combination of physiologic fluid as well as postoperative residual fluid. No evidence for abscess or loculated collection. There is colonic constipation and obstipation without karlie bowel obstruction or small bowel dilatation. Unobstructed urinary tracts. No bile duct dilatation. Dictated by: Dictated on workstation # [id number] Dict: 03/20/22 1514 Trans: 03/20/22 1554 [id number] Interpreted by: YESSY MILES Electronically signed by: YESSY MILES 03/20/22 1554 Departure Impression Primary Impression: Acute cystitis with hematuria Additional Impressions: Elevated d-dimer Acute gastritis Disposition: 01 HOME, SELF-CARE Condition: Stable Departure-Patient Inst. Referrals: CARIDAD COFFEY APRN (PCP) Primary Care Physician [facility]/NEISHA (Family) Primary Care Physician Patient Instructions: Acute Cystitis (DC), Blood in Urine (Hematuria), Adult ED, Urinary Tract Infection, Adult (DC) Add. Discharge Instructions: -Cefpodoxime prescription for 7 days twice a day -Advised adequate hydration -keep appointment with surgery clinic for next -Advised Pepcid 20 mg to be taken twice a day and Maalox as needed [id number] -Follow-up with PCP within the next 3 to 7 days All discharge instructions reviewed with patient and/or family. Voiced understanding. Scripts Cefpodoxime Proxetil (Cefpodoxime Proxetil) 100 Mg Tablet 100 MG PO BID for 7 Days, #14 TAB Prov: NISHI SU MD 03/20/22 NISHI SU MD Mar 20, 2022 12:18
[2022-03-20] MEDS ORDERED: METOCLOPRAMIDE INJ 10 MG/2 ML (REGLAN) IVP STA (12:28)
[2022-03-20] MEDS ORDERED: FAMOTIDINE 20 MG (PEPCID) TABLET PO STA (12:28)
[2022-03-20] MEDS ORDERED: NS IV 1000 ML 1,000 ML IV SCH (12:30)
[2022-03-20 12:43] LABS: BASOPHILS % (AUTO) 0 % (0-10); EOSINOPHILS % (AUTO) 0 % (0-10); HEMATOCRIT 36 % (35-52); HEMOGLOBIN 12.4 g/dL (11.5-16.0); LYMPHOCYTES # (AUTO) 2.8 10^3/uL (1.0-4.0); LYMPHOCYTES % (AUTO) 19 % (12-44); MEAN CORPUSCULAR HEMOGLOBIN 30 pg (25-34); MEAN CORPUSCULAR HGB CONC 34 g/dL (32-36); MEAN CORPUSCULAR VOLUME 88 fL (80-99); MEAN PLATELET VOLUME 11.4 fL (9.0-12.2); MONOCYTES # (AUTO) 1.1 10^3/uL (0.0-1.0); MONOCYTES % (AUTO) 7 % (0-12); NEUTROPHILS # (AUTO) 10.7 10^3/uL (1.8-7.8); NEUTROPHILS % (AUTO) 73 % (42-75); PLATELET COUNT 233 10^3/uL (130-400); WHITE BLOOD COUNT 14.7 10^3/uL (4.3-11.0)
[2022-03-20 13:06] LABS: ALBUMIN 4.3 GM/DL (3.2-4.5); BILIRUBIN,TOTAL 2.2 MG/DL (0.1-1.0); CALCIUM 9.2 MG/DL (8.5-10.1); CREATININE SERUM 0.58 MG/DL (0.60-1.30); MAGNESIUM 1.8 MG/DL (1.6-2.4); TOTAL PROTEIN 7.1 GM/DL (6.4-8.2)
[2022-03-20 13:45] LABS: BAND NEUTROPHILS 4 %; LYMPHOCYTES % (MANUAL) 21 %; MONOCYTES % (MANUAL) 7 %; NEUTROPHILS % (MANUAL) 68 %; PLATELET ESTIMATE NORMAL; RBC MORPH NORMAL
[2022-03-20 14:00] LABS: BILIRUBIN,URINE NEGATIVE (NEGATIVE); CLARITY,URINE CLOUDY; COLOR,URINE YELLOW; GLUCOSE, URINE (UA) NEGATIVE (NEGATIVE); KETONES,URINE 1+ (NEGATIVE); LEUKOCYTE ESTERASE ,URINE 1+ (NEGATIVE); NITRITE,URINE NEGATIVE (NEGATIVE); PROTEIN,URINE NEGATIVE (NEGATIVE)
[2022-03-20 14:09] LABS: BACTERIA,URINE FEW /HPF; RBC,URINE RARE /HPF
[2022-03-20 14:13] LABS: FIBRIN DEGRADATION PRODUCTS 2.24 UG/ML (0.00-0.49); PARTIAL THROMBOPLASTIN TIME < 20 SEC (24-35); PROTHROMBIN TIME PATIENT 13.2 SEC (12.2-14.7)
[2022-03-20 14:15] LABS: AMPHETAMINE SCREEN, URINE NEGATIVE (NEGATIVE); BENZODIAZEPINES SCREEN URINE NEGATIVE (NEGATIVE); CANNABINOID SCREEN, URINE NEGATIVE (NEGATIVE); COCAINE SCREEN URINE NEGATIVE (NEGATIVE)
[2022-03-20 14:16] LABS: BARBITURATE SCREEN URINE NEGATIVE (NEGATIVE); METHADONE STAT NEGATIVE (NEGATIVE); OPIATE SCREEN URINE POSITIVE (NEGATIVE); OXYCODONE STAT NEGATIVE (NEGATIVE); PROPOXYPHENE STAT NEGATIVE (NEGATIVE); TRICYCLIC ANTIDEPRESSANTS SCRE NEGATIVE (NEGATIVE)
[2022-03-20] MEDS ORDERED: cefTRIAXone 1 GM PRE-MIX 50 ML IV STA (14:17)
[2022-03-20] MEDS ORDERED: IOHEXOL 350 MG/ML 100 ML (OMNIPAQUE 350) VIAL IV ONE (14:30)
[2022-03-20] MEDS ORDERED: NS 100 ML (IVPB) BAG IV ONE (14:30)
[2022-03-20] MEDS ORDERED: fentaNYL INJ 100 MCG/2 ML AMP IVP ONE (14:30)
[2022-03-20] MEDS ORDERED: HOLD METFORMIN - RECEIVED CONTRAST 20 ML VIAL IV SCH (14:30)
--- NOTE | 2022-03-20 15:26 | Diagnostic Imaging Report ---
EXAMINATION: CTA chest, abdomen, and pelvis. TECHNIQUE: Thin axial sections through the chest, abdomen and pelvis are obtained following intravenous contrast bolus. Multiplanar MIP images were reconstructed and reviewed. All CT scans use one or more of the following dose optimizing techniques: Automated exposure control, MA and/or KvP adjustment based on patient size and exam type or iterative reconstruction. INDICATION: Abdominal pain, elevated D-dimer, cholecystectomy on Wednesday. FINDINGS: CHEST: There are no pulmonary arterial filling defects. There is no PE. The thoracic aorta is patent, nonaneurysmal, and nonacute. No findings of pneumonia or edema. No effusion or pneumothorax. No lung mass or adenopathy. No chest wall lesion. ABDOMEN AND PELVIS: There is a small amount of pneumoperitoneum as an expected postoperative residua. No formed or walled-off perihepatic fluid collection. No pathological biliary dilatation postop. No opaque stone along the course of the extrahepatic bile duct. The pancreas is nonacute. Kidneys are unobstructed. There is a [id number] volume of pelvic free fluid, which may be a combination of physiologic free fluid in the cul-de-sac as well as some postoperative residual fluid. No findings to suggest hemorrhage. No contrast extravasation. There is some colonic constipation and obstipation with no small bowel dilatation. The uterus and urinary bladder appeared unremarkable. IMPRESSION: CHEST: Negative for PE or other acute chest pathology. ABDOMEN AND PELVIS: Pneumoperitoneum small volume as an expected finding. Pelvic free fluid, likely a combination of physiologic fluid as well as postoperative residual fluid. No evidence for abscess or loculated collection. There is colonic constipation and obstipation without karlie bowel obstruction or small bowel dilatation. Unobstructed urinary tracts. No bile duct dilatation. Dictated by: Dictated on workstation # [id number]
[2022-03-20] MEDS ORDERED: CEFP100T2 PO (16:28)
[2022-03-20 16:45] VITALS: BP 104/65
[2022-03-20] MEDS ORDERED: ANTACID SUSP 30 ML UDC (MYLANTA) PO ONE (16:45)
== END 2022-03-20 16:46 | disposition home or self-care (01) ==
LOC: EDUNIT# 12:10 → ER FS 12:11
DX: N30.01 Acute cystitis with hematuria (principal); K29.00 Acute gastritis without bleeding; R79.89 Other specified abnormal findings of blood chemistry; Z90.49 Acquired absence of other specified parts of digestive tract; Z28.310 Unvaccinated for COVID-19
CPT/HCPCS: 36415; 71275; 74177; 80053; 80306; 81000; 83605; 83735; 85007; 85027; 85379; 85610; 85730; 87040; 87088; Q9967